=== PATIENT | male | born 1990 | race African-American/Black ===

== ENCOUNTER 2025-04-04 13:48 | Emergency (ER) | payer OTHER ==
[~2025-04-04] VITALS: Ht 170.2 cm; Wt 75.0 kg
[2025-04-04 14:03] VITALS: O2SAT 98
[2025-04-04] MEDS: HALOPERIDOL LACTATE 5MG/ML VIAL IM ONE (14:51)
[2025-04-04] MEDS: DIPHENHYDRAMINE 50MG/ML VIAL IM ONE (14:51)
[2025-04-04] MEDS: LORAZEPAM 2MG/ML UD SYRINGE ONE (14:51)
[2025-04-04 15:06] LABS: *AMPHETAMINES SCREEN URINE NEGATIVE (NEGATIVE); *BARBITURATES SCREEN URINE NEGATIVE (NEGATIVE); *BENZODIAZEPINES SCREEN URINE NEGATIVE (NEGATIVE); *COCAINE SCREEN URINE NEGATIVE (NEGATIVE)
[2025-04-04 15:07] LABS: CANNABINOID URINE SCREEN PRESUMPTIVE POSITIVE (NEGATIVE); ECSTASY MDMA SCREEN URINE CONF.TEST INDICATED (NEGATIVE); METHADONE URINE SCREEN NEGATIVE (NEGATIVE); OPIATES URINE SCREEN NEGATIVE (NEGATIVE); PHENCYCLIDINE URINE SCREEN NEGATIVE (NEGATIVE)
[2025-04-04 17:01] LABS: BASOPHILS % 0.2 % (0.0-2.0); EOSINOPHILS % 0.0 % (0.0-5.0); HEMATOCRIT. 39.4 % (42.0-52.0); HEMOGLOBIN. 13.1 g/dL (14.0-18.0); LYMPHOCYTES % 16.0 % (20.0-50.0); MEAN PLATELET VOLUME 8.1 fl (7.4-10.4); MONOCYTES % 7.1 % (2.0-8.0); NEUTROPHILS % 76.7 % (40.0-76.0); PLATELET 269 x1000/uL (130-400); RED BLOOD CELL COUNT 4.27 mill/uL (4.7-6.1); RED CELL DISTRIBUTION WIDTH 15.5 % (11.6-14.6)
[2025-04-04 17:13] LABS: CREATININE 1.1 mg/dL (0.6-1.3)
[2025-04-04 17:14] LABS: UREA NITROGEN BLOOD 7 mg/dL (9-23)
[2025-04-04 19:45] VITALS: BP 132/74; PULSE 74; RESP 14; TEMP 36.7; O2SAT 97
[2025-04-04] MEDS: LORAZEPAM 0.5MG TABLET PO ONE (20:11)
== END 2025-04-04 20:15 ==
LOC: ER 13:48
DX: R45.851 Suicidal ideations (principal); Z20.822 Contact with and (suspected) exposure to COVID-19
CPT/HCPCS: 80305; 80048; 80307; 80329; 80320; 85025; 36415; 96372; 99285; 87426; J1200; J1630; J2060; G0480